=== PATIENT | female | born 1990 | race African-American/Black ===

== ENCOUNTER 2017-03-06 12:43 | Emergency (ER) | payer MEDICAID, OTHER ==
[~2017-03-06] VITALS: Ht 162.6 cm; Wt 75.0 kg
[2017-03-06] MEDS ORDERED: IBUPROFEN 600MG TABLET PO ONE (16:45)
[2017-03-06] MEDS ORDERED: TETANUS, DIPHTHERIA, PERTUSSIS VAC/PF 0.5ML (>7YR OLD) IM ONE (17:00)
[2017-03-06 18:27] VITALS: BP 113/64
== END 2017-03-06 18:28 | disposition home or self-care (01) ==
LOC: ER 12:43
DX: S00.81XA Abrasion of other part of head, initial encounter (principal); M79.631 Pain in right forearm; V49.40XA Driver injured in collision with unspecified motor vehicles in traffic accident, initial encounter; Y93.89 Activity, other specified; Y92.410 Unspecified street and highway as the place of occurrence of the external cause; Z23 Encounter for immunization
CPT/HCPCS: 70450; 70486; 73090; 81025; 90471; 90715; 99284